=== PATIENT | male | born 1990 | race Caucasian/White ===

== ENCOUNTER → 2016-11-21 | Outpatient (CLI) | payer BC ==
[2016-11-21 12:37] LABS: ALT 32 U/L (21-72); AST 23 U/L (17-59)
== END ==
LOC: LABWHC1 11:55
PROVIDERS: ATTEND Podiatrist
DX: K76.1 Chronic passive congestion of liver (principal)
CPT/HCPCS: 36415; 84450; 84460

== ENCOUNTER 2023-08-20 12:25 | Day surgery (SDC) | payer BC ==
--- NOTE | 2023-08-20 09:25 | P.GSHP ---
History of Present Illness H&P Date: 08/20/23 CHIEF COMPLAINT: Abdominal mass HISTORY OF PRESENT ILLNESS: The patient is a 33 year-old male with history of mass along the abdomen for over 6 months to 1 year. He reports pain and tenderness. He presents today for surgical excision. PAST MEDICAL HISTORY: Please see list. PAST SURGICAL HISTORY: Please see list. MEDICATIONS: Please see list. ALLERGIES: Please see list. SOCIAL HISTORY: No illicit drug use FAMILY HISTORY: No reports of Crohn disease or ulcerative colitis. REVIEW OF ORGAN SYSTEMS: CONSTITUTIONAL: No reports of fevers or chills. GI: Denies any blood in stools or constipation. PHYSICAL EXAM: VITAL SIGNS: Stable SKIN: Well perfused. Good skin turgor. Mass 5 cm long right flank/abdomen Musculoskeletal: No clubbing cyanosis or edema GENERAL: Well developed and in no acute distress. Pleasant. HEENT: No sclera icterus. Extraocular movements grossly intact. Moist buccal mucosa. Head is atraumatic, normocephalic. Hears conversational speech. No nasal drainage. NECK: Supple without lymphadenopathy. No JV distention. CHEST: Non-labored respirations and equal bilateral excursions. CARDIOVASCULAR: Regular rate and rhythm. Palpable 2+ radial pulses. ABDOMEN: Soft. Non-tender. Nondistended. NEUROLOGIC: No focal or lateralizing signs. PSYCH: Appropriate affect. Alert and oriented to person, place and time. ASSESSMENT: 1. Mass along right flank/abdomen PLAN: 1. Will proceed of excision of subcutaneous tumor along the abdomen 2. DVT prophylaxis. 3. Antibiotic prophylaxis. 4. Time of recovery, at least one week. 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
[~2023-08-20 12:25] MED LIST: HYDROmorphone 0.5 MG/0.5 ML SYRINGE IVP PRN
[2023-08-20] MEDS: LACTATED RINGERS 1,000 ML IV SCH (12:46)
[2023-08-20] MEDS: ACETAMINOPHEN TAB 500 MG TAB PO PRN (13:02)
[2023-08-20] MEDS: ONDANSETRON 4 MG/2 ML VIAL IVP PRN (13:15)
[2023-08-20] MEDS: HEPARIN SODIUM,PORCINE 5,000 UNIT/ML 1 ML VIAL SQ PRN (13:16)
[2023-08-20] MEDS: DEXAMETHASONE SOD PHOSPHATE 4 MG/ML 1 ML VIAL IVP ONE (13:16)
[2023-08-20 13:24] LABS: Basophils % (A) 1 %; Eosinophils # (A) 0.1 k/uL (0-0.7); Eosinophils % (A) 1 %; HCT 47.3 % (39.0-53.0); HGB 16.8 gm/dL (13.0-17.5); Lymphocytes # (A) 2.2 k/uL (1.0-4.8); Lymphocytes % (A) 31 %; MCH 28.7 pg (25.0-35.0); MCHC 35.4 g/dL (31.0-37.0); MCV 81.1 fL (80.0-100.0); Monocytes # (A) 0.4 k/uL (0-1.0); Monocytes % (A) 5 %; Neutrophils # (A) 4.4 k/uL (1.3-7.7); Neutrophils % (A) 62 %; Platelet Count 195 k/uL (150-450); RBC 5.83 m/uL (4.30-5.90); WBC 7.1 k/uL (3.8-10.6)
[2023-08-20 13:38] LABS: ALT 71 U/L (4-49); AST 38 U/L (17-59); African American GFR (CKD) >90 (>60 ml/min/1.73 sqM); Albumin 4.4 g/dL (3.5-5.0); Alkaline Phosphatase 68 U/L (38-126); Anion Gap 7 mmol/L; Blood Urea Nitrogen 18 mg/dL (9-20); Calcium 9.5 mg/dL (8.4-10.2); Carbon Dioxide 26 mmol/L (22-30); Chloride 108 mmol/L (98-107); Glucose 87 mg/dL (74-99); Non-African American GFR(CKD) >90 (>60 ml/min/1.73 sqM); Potassium 3.6 mmol/L (3.5-5.1); Sodium 141 mmol/L (137-145); Total Protein 7.2 g/dL (6.3-8.2)
[2023-08-20] MEDS ORDERED: PROPOFOL 10 MG/ML 20 ML VIAL IV ONE (13:55)
[2023-08-20] MEDS ORDERED: fentaNYL (PF) 50 MCG/ML 2 ML AMP ONE (13:55)
[2023-08-20] MEDS ORDERED: MIDAZOLAM 2 MG/2 ML VIAL ONE (13:55)
[2023-08-20] MEDS ORDERED: LIDOCAINE 1% INJ 10MG/ML (20 ML MDV) ONE (13:55)
[2023-08-20] MEDS ORDERED: PHENYLEPHRINE-0.9% NACL SYG 1,000 MCG/10 ML SYRINGE ONE (13:55)
[2023-08-20] MEDS: SODIUM CHLORIDE 0.9% 50 ML with ceFAZolin 2,000 MG IV ONE (14:00)
[2023-08-20] MEDS: LIDOCAINE 1%-EPI 1:100,000 50 ML VIAL SQ ONE (14:29)
[2023-08-20 15:14] VITALS: TEMP 98.1
[2023-08-20 15:46] VITALS: RESP 16
[2023-08-20 16:19] VITALS: BP 105/64; PULSE 91
--- NOTE | 2023-08-20 17:11 | P.OP ---
Date of Procedure: 08/20/23 Description of Procedure: SURGEON: ADELA GUERRERO MD PREOPERATIVE DIAGNOSES: 1. Right flank tumor, 5 cm 2. Hyperbilirubinemia POSTOPERATIVE DIAGNOSES: 1. Right flank tumor, 5 cm 2. Hyperbilirubinemia OPERATION: 1. Excision of right flank deep subcutaneous tumor, 3.5 cm cm. 2. Intermediate closure right flank incision, 6 cm. ANESTHESIA: General with local anesthetic. ESTIMATED BLOOD LOSS: 5 mL. SPECIMENS REMOVED: 1. Right flank subcutaneous tumor COMPLICATIONS: None. FINDINGS: 1. Right flank tumor, 3.5 cm extension into deep subcutaneous tissue. INDICATIONS: The patient is a 33-year-old male who presents with right flank subfascial/subcutaneous tumor. Surgical options, including excision was discussed. Benefits and risks were described. Informed consent was obtained. DESCRIPTION OF PROCEDURE: Patient was brought into the operating room, laid in left lateral decubitus position. After general induction, the abdomen and right flank was prepped and draped in standard sterile fashion using ChloraPrep. A timeout protocol was confirmed with the surgical team regarding patient's name including procedures to be performed. Preoperative medications was administered. Next, field block was administered. The right flank mass was measured using a ruler with borders marked with indelible marker. A transverse flank incision of 6 cm in size into the dermis followed by circumferential dissection using electro-Bovie cautery into the deep subcutaneous tissue was performed with removal of 3-1/2 cm fatty tumor. Hemostasis was checked with electrocautery cautery. The wound was closed in multiple layers including 0 Vicryl for the deep subcutaneous tissue. The skin was closed using 3-0 Monocryl in a running subcuticular. Exofin tape including liquid was used as the final third layer. The skin was cleansed. Optifoam dressing was placed. At the end of the procedure, needle, sponge, and instrument count had been verified correct by the construction technician. The patient was taken to the postanesthesia care unit in stable condition. Plan - Discharge Summary Discharge Rx Participant: No New Discharge Prescriptions: New Ibuprofen [Motrin] 600 mg PO Q8HR PRN #30 tab PRN Reason: Pain Acetaminophen Tab [Tylenol Tab] 1,000 mg PO Q6HR PRN #30 tablet PRN Reason: Pain Discontinued Ibuprofen [Motrin Ib] 400 mg PO DIRECTED PRN PRN Reason: Pain Discharge Medication List Acetaminophen Tab [Tylenol Tab] 1,000 mg PO Q6HR PRN #30 tablet 08/20/23 [Rx] Ibuprofen [Motrin] 600 mg PO Q8HR PRN #30 tab 08/20/23 [Rx] Follow up Appointment(s)/Referral(s): Adela Guerrero MD [STAFF PHYSICIAN] - 08/25/23 4:00 pm Patient Instructions/Handouts: *Surgery [facility] - (Anesthesia) Discharge Instructions Outpatient Surgery Activity/Diet/Wound Care/Special Instructions: DO NOT REMOVE DRESSING. No stretching of the torso to prevent injury May shower. No bathtub soaks for 2 weeks, 09/03/23 Use ice along incisions for today to prevent swelling. Take tylenol, aleve/ibuprofen scheduled for 3 days for best pain relief Discharge Disposition: HOME SELF-CARE
== END 2023-08-20 16:41 | disposition home or self-care (01) ==
LOC: OR 12:25
PROVIDERS: ATTEND Surgery Plastic and Reconstructive Surgery
DX: D17.1 Benign lipomatous neoplasm of skin and subcutaneous tissue of trunk (principal); E80.6 Other disorders of bilirubin metabolism
CPT/HCPCS: 21931; 88304; 80053; 85025; 88307; J2250; J1644; J1100; J2405; J0690; J2001; J3010; J2704; J2371